=== PATIENT | male | born 1960 | race Caucasian/White ===

== ENCOUNTER → 2019-05-21 15:04 | Outpatient (BNVA) | payer MEDICAID, SELFPAY | PROVIDERS: Family Provider Family Medicine; PCP Family Medicine; Visit Provider Family Medicine | DX: I10 Essential (primary) hypertension (principal); E78.2 Mixed hyperlipidemia; E11.9 Type 2 diabetes mellitus without complications; Z79.4 Long term (current) use of insulin | CPT/HCPCS: 80053; 80061; 82044; 83036; 83721; 85025 ==

== ENCOUNTER 2019-11-08 13:53 | Emergency (ER) | payer MEDICAID, SELFPAY ==
[2019-11-08 14:01] VITALS: BP 161/79; PULSE 92; RESP 14; TEMP 37.1; O2SAT 94; BMI 25.8
[2019-11-08 14:11] VITALS: BP 147/102; PULSE 95; RESP 16; O2SAT 95
--- NOTE | 2019-11-08 14:17 | W.ED.SKABFB ---
HPI - Skin/Abscess/Foreign Bdy General: Chief complaint: Skin/Abscess/Foreign Body Stated complaint: bump on breast Time Seen by Provider: 11/08/19 14:11 Source: patient Mode of arrival: ambulatory Limitations: no limitations History of Present Illness: HPI narrative: Patient is a 59-year-old female who presents to ED today with a complaint of redness and possible abscess to her right breast. Patient tells me she has a history of similar areas in her groins. She tells me she began noticing what looks like a pimple to her right breast a few days ago and states since then the area has continued to enlarge. She has not been running fevers. She does report previous mammograms that were normal but states she is due for one. MD complaint: abscess/boil Onset (ago): day(s) Tetanus up to date: yes Location: chest (R breast) Relieving factors: none Exacerbating factors: none Context: none Associated symptoms: Reports no associated symptoms; Deny chills or fever(s) Review of Systems Const: Denies: fever(s), chills, body aches, change in appetite, change in weight, fatigue or malaise Skin/Breast: Reports: new lesions PFSH ED PFSH: Medical History (Updated 11/08/19 @ 14:31 by MARILYN Kenny) Depression, endogenous Diabetic neuropathy Essential hypertension Mixed hyperlipidemia Type 2 diabetes mellitus, with long-term current use of insulin Surgical History H/O tubal ligation H/O: hysterectomy History of cholecystectomy History of open reduction and internal fixation (ORIF) procedure Family History Other CAD (coronary artery disease) Cancer Diabetes Hyperlipidemia Hypertension Stroke Thyroid condition Social History Smoking and tobacco status: current every day smoker cigarettes Packs smoked per day: 0.5 Alcohol intake: former Current gender identity: Female Physical Exam Const: COMMON NORMALS: no acute distress, average body habitus, patient oriented x3, no limitations, healthy appearing, alert and well nourished Chest: OTHER: pt has a small 0.5 indurated area to superior aspect of R nipple at approx. the 10 o'clock position; there is some surrounding erythema but no fluctuance and nothing amendable to I&D at this time Resp: COMMON NORMALS: normal respiratory effort and clear to auscultation bilaterally AUSCULTATION: clear to auscultation bilaterally Cardio: COMMON NORMALS: regular rate and regular rhythm RATE: regular rate RHYTHM: regular rhythm Neuro: COMMON NORMALS: patient oriented x3 SENSORIUM/ORIENTATION: Yes alert Skin: OTHER: see chest assessment Course Vital Signs: Vital signs: Vital Signs Temperature 98.7 F 11/08/19 14:01 Pulse Rate 95 11/08/19 14:11 Respiratory Rate 16 11/08/19 14:11 Blood Pressure 147/102 11/08/19 14:11 Pulse Oximetry 95 11/08/19 14:11 MDM - Skin/Abscess/Foreign Bdy MDM Narrative: Medical decision making narrative: Clinically this looks like an abscess and given patient's history, I will treat as such with Bactrim. This is less likely any form of inflammatory breast carcinoma however recommended close follow-up with her PCP in case area does not improve with the Bactrim. Return to ED precautions given. Discharge Plan Discharge Patient Disposition: Home, Self-Care Clinical Impression: Abscess of breast, right Condition: Stable Prescriptions: New Bactrim DS 800-160 mg tablet 1 tab PO BID 7 Days Qty: 14 RF: 0 No Action buspirone 5 mg tablet 5 mg PO TID PRN (Reason: anxiety) 30 Days Qty: 90 RF: 0 Chantix 1 mg tablet 1 mg PO BID Qty: 56 RF: 0 fluticasone propionate [Flonase Allergy Relief] 50 mcg/actuation spray,suspension 2 spray INTRANASAL QDAY RF: 0 montelukast [Singulair] 10 mg tablet 10 mg PO QDAY RF: 0 lisinopril 20 mg tablet 20 mg PO QDAY Qty: 30 RF: 0 trazodone 50 mg tablet See Rx Instructions PO .po q hs PRN (Reason: insomnia) 30 Days Qty: 60 RF: 2 citalopram 40 mg tablet 40 mg PO QDAY Qty: 30 RF: 2 rosuvastatin [Crestor] 40 mg tablet 40 mg PO QDAY Qty: 30 RF: 2 hydrochlorothiazide 25 mg tablet 25 mg PO QAM Qty: 30 RF: 2 Januvia 100 mg tablet 100 mg PO QDAY Qty: 30 RF: 2 fenofibrate nanocrystallized [Tricor] 145 mg tablet 145 mg PO QDAY Qty: 30 RF: 2 gabapentin 600 mg tablet 600 mg PO TID Qty: 90 RF: 2 Lantus Solostar U-100 Insulin 100 unit/mL (3 mL) insulin pen 10 unit SUBCUT QDAY Qty: 15 RF: 0 albuterol sulfate [ProAir HFA] 90 mcg/actuation HFA aerosol inhaler 2 puff INHALATION QID PRN (Reason: shortness of breath or wheezing) Qty: 8.5 RF: 2 metformin 1,000 mg tablet extended release 24hr 2,000 mg PO QDAY Qty: 60 RF: 0 Discharge Orders: Discharge Order (Routine); Ordered 11/08/19 Ordered By: Jo Cruz Referrals: Dolores Pineda DO [Primary Care Provider] - Patient Instructions: Abscess (ED), Skin Abscess, Skin Abscess - Antibiotics Activity Restrictions/Additional Instructions: As discussed please follow-up with Dr. Pineda in approximately 5 to 7 days for reevaluation. You may return to the emergency department for worsening pain, worsening redness, drainage, swelling, or any other concerns you may have. Coding Level of Care Code ED Bottle Washer Machine for Amparo Haro
[2019-11-08 14:40] VITALS: BP 146/98; PULSE 89; RESP 16; O2SAT 97
== END 2019-11-08 14:42 | disposition home or self-care (01) ==
LOC: ER 14:33
PROVIDERS: Emergency Provider Physician Assistant; PCP Family Medicine
DX: N61.1 Abscess of the breast and nipple (principal); Z79.4 Long term (current) use of insulin; E11.40 Type 2 diabetes mellitus with diabetic neuropathy, unspecified; I10 Essential (primary) hypertension; E78.2 Mixed hyperlipidemia; F17.210 Nicotine dependence, cigarettes, uncomplicated
CPT/HCPCS: 12345; 99281; 99282

== ENCOUNTER → 2019-11-30 14:49 | Outpatient (BNVA) | payer MEDICAID, SELFPAY | PROVIDERS: PCP Family Medicine; Visit Provider Psychiatry & Neurology Psychiatry | DX: F41.8 Other specified anxiety disorders (principal); F41.1 Generalized anxiety disorder; F51.05 Insomnia due to other mental disorder; G47.00 Insomnia, unspecified; Z63.8 Other specified problems related to primary support group | CPT/HCPCS: 90792 ==

== ENCOUNTER → 2019-12-24 12:40 | Outpatient (BNVA) | payer MEDICAID, SELFPAY | PROVIDERS: PCP Family Medicine; Visit Provider Nurse Practitioner Family | DX: M79.672 Pain in left foot (principal) | CPT/HCPCS: 73630 ==

== ENCOUNTER → 2020-01-17 13:45 | Outpatient (BNVA) | payer MEDICAID, SELFPAY | PROVIDERS: PCP Family Medicine; Visit Provider Psychiatry & Neurology Psychiatry | DX: F41.8 Other specified anxiety disorders (principal); F51.05 Insomnia due to other mental disorder; F99 Mental disorder, not otherwise specified; Z63.8 Other specified problems related to primary support group; F41.1 Generalized anxiety disorder | CPT/HCPCS: 99213 ==

== ENCOUNTER → 2020-01-25 09:36 | Outpatient (BNVA) | payer MEDICAID, SELFPAY | PROVIDERS: PCP Family Medicine; Visit Provider Family Medicine | DX: E11.9 Type 2 diabetes mellitus without complications (principal); Z79.4 Long term (current) use of insulin; E78.2 Mixed hyperlipidemia; I10 Essential (primary) hypertension | CPT/HCPCS: 80053; 80061; 82043; 83036; 85025; 87086 ==

== ENCOUNTER → 2020-03-13 13:45 | Outpatient (BNVA) | payer MEDICAID, SELFPAY | PROVIDERS: PCP Family Medicine; Visit Provider Psychiatry & Neurology Psychiatry | DX: F41.8 Other specified anxiety disorders (principal); F51.05 Insomnia due to other mental disorder; F99 Mental disorder, not otherwise specified; Z63.8 Other specified problems related to primary support group | CPT/HCPCS: 99212 ==

== ENCOUNTER → 2020-05-08 09:32 | Outpatient (BNVA) | payer MEDICAID, SELFPAY | PROVIDERS: PCP Family Medicine; Visit Provider Family Medicine | DX: E11.9 Type 2 diabetes mellitus without complications (principal); Z79.4 Long term (current) use of insulin; E78.2 Mixed hyperlipidemia; K21.9 Gastro-esophageal reflux disease without esophagitis | CPT/HCPCS: 80053; 80061; 81015; 82043; 83036 ==

== ENCOUNTER → 2020-05-29 09:04 | Outpatient (BNVA) | payer MEDICAID, SELFPAY | PROVIDERS: PCP Family Medicine; Visit Provider Psychiatry & Neurology Psychiatry | DX: F41.8 Other specified anxiety disorders (principal); F51.05 Insomnia due to other mental disorder; F99 Mental disorder, not otherwise specified; Z63.8 Other specified problems related to primary support group | CPT/HCPCS: 99214 ==

== ENCOUNTER → 2020-07-25 09:08 | Outpatient (BNVA) | payer MEDICAID, SELFPAY | PROVIDERS: PCP Family Medicine; Visit Provider Psychiatry & Neurology Psychiatry | DX: F41.8 Other specified anxiety disorders (principal); G47.00 Insomnia, unspecified; F51.05 Insomnia due to other mental disorder; F99 Mental disorder, not otherwise specified; Z63.8 Other specified problems related to primary support group | CPT/HCPCS: 99214 ==

== ENCOUNTER → 2020-11-20 10:23 | Outpatient (BNVA) | payer MEDICAID, SELFPAY | PROVIDERS: PCP Family Medicine; Visit Provider Psychiatry & Neurology Psychiatry | DX: F41.8 Other specified anxiety disorders (principal); F51.05 Insomnia due to other mental disorder; F99 Mental disorder, not otherwise specified; Z63.8 Other specified problems related to primary support group | CPT/HCPCS: 99214 ==

== ENCOUNTER → 2020-11-30 09:34 | Outpatient (BNVA) | payer MEDICAID, SELFPAY | PROVIDERS: PCP Family Medicine; Visit Provider Family Medicine | DX: E11.9 Type 2 diabetes mellitus without complications (principal); Z79.4 Long term (current) use of insulin; E78.2 Mixed hyperlipidemia; I10 Essential (primary) hypertension; K21.9 Gastro-esophageal reflux disease without esophagitis; F17.218 Nicotine dependence, cigarettes, with other nicotine-induced disorders | CPT/HCPCS: 80053; 80061; 83036; 85025 ==

== ENCOUNTER → 2021-01-30 10:54 | Outpatient (BNVA) | payer MEDICAID, SELFPAY | PROVIDERS: PCP Family Medicine; Visit Provider Family Medicine Adult Medicine | DX: M54.9 Dorsalgia, unspecified (principal) | CPT/HCPCS: 71046 ==

== ENCOUNTER → 2021-02-20 10:36 | Outpatient (BNVA) | payer MEDICAID, SELFPAY | PROVIDERS: PCP Family Medicine; Visit Provider Psychiatry & Neurology Psychiatry | DX: F41.8 Other specified anxiety disorders (principal); G47.00 Insomnia, unspecified; F51.05 Insomnia due to other mental disorder; F99 Mental disorder, not otherwise specified; Z63.8 Other specified problems related to primary support group | CPT/HCPCS: 99214 ==

== ENCOUNTER → 2021-05-31 08:36 | Outpatient (BNVA) | payer MEDICAID, SELFPAY | PROVIDERS: PCP Family Medicine; Visit Provider Family Medicine | DX: E11.9 Type 2 diabetes mellitus without complications (principal); Z79.4 Long term (current) use of insulin | CPT/HCPCS: 80053; 83036 ==

== ENCOUNTER → 2021-08-22 09:07 | Outpatient (BNVA) | payer MEDICAID, SELFPAY | PROVIDERS: PCP Family Medicine; Visit Provider Family Medicine | DX: E78.2 Mixed hyperlipidemia (principal); E11.9 Type 2 diabetes mellitus without complications; Z79.4 Long term (current) use of insulin; I10 Essential (primary) hypertension; R06.09 Other forms of dyspnea | CPT/HCPCS: 80053; 80061; 83036 ==

== ENCOUNTER → 2021-09-17 10:51 | Outpatient (BNVA) | payer MEDICAID, SELFPAY | PROVIDERS: PCP Family Medicine; Visit Provider Registered Nurse Neonatal Intensive Care | DX: M79.671 Pain in right foot (principal) | CPT/HCPCS: 73630 ==

== ENCOUNTER → 2021-11-20 08:26 | Outpatient (BNVA) | payer MEDICAID, SELFPAY | PROVIDERS: PCP Family Medicine; Visit Provider Family Medicine | DX: I10 Essential (primary) hypertension (principal); E11.9 Type 2 diabetes mellitus without complications; Z79.4 Long term (current) use of insulin; E78.2 Mixed hyperlipidemia; E11.42 Type 2 diabetes mellitus with diabetic polyneuropathy; K21.9 Gastro-esophageal reflux disease without esophagitis; F17.218 Nicotine dependence, cigarettes, with other nicotine-induced disorders | CPT/HCPCS: 80053; 82043; 83036; 85025 ==

== ENCOUNTER → 2022-02-21 08:17 | Outpatient (BNVA) | payer MEDICAID, SELFPAY | PROVIDERS: PCP Family Medicine; Visit Provider Family Medicine | DX: E11.9 Type 2 diabetes mellitus without complications (principal); Z79.4 Long term (current) use of insulin | CPT/HCPCS: 80053; 83036 ==

== ENCOUNTER → 2022-08-22 08:21 | Outpatient (BNVA) | payer MEDICAID, SELFPAY | PROVIDERS: PCP Family Medicine; Visit Provider Family Medicine | DX: E11.9 Type 2 diabetes mellitus without complications (principal); Z79.4 Long term (current) use of insulin; E78.2 Mixed hyperlipidemia; K21.9 Gastro-esophageal reflux disease without esophagitis | CPT/HCPCS: 80053; 80061; 82043; 83036; 85025 ==

== ENCOUNTER 2022-10-14 09:36 | Outpatient (CLI) | payer MEDICAID, SELFPAY ==
[2022-10-14 09:58] VITALS: BMI 28.1
--- NOTE | 2022-10-14 09:59 | NMCV_ITS ---
NM darwin perf SPECT r/s* [id number] Niru Mendoza Age: 62 Gender: F : 1960 Exam Date: 10/14/2022 10:38 Ordering Phys: Dolores Pineda DO Technologist: SANTA Murphy Exam Location: [facility] Indications: SHORTNESS OF BREATH STRESS TEST [facility] IMAGE PROTOCOL Rest/Stress 1 Lexiscan Day Radiopharmaceutical Dose (mCi) Administration Site Administered by Rest: Tc-99m 10.4 IV SANTA [place] Sestamibi Stress:Tc-99m 32.8 IV S[place] Sestamibi Rest: 14-Oct-2022 60 Discovery 630 Stress: 14-Oct-2022 30 Discovery 630 0.4mg Lexiscan. Images obtained in supine and prone position. SPECT RESULTS Technical Quality: Excellent Raw Data Analysis: Normal Image Corrections: No attenuation or motion correction applied Summed Stress Score: 0 Summed Rest Score: 0 Summed Difference Score: 0 PERFUSION FINDINGS SPECT images demonstrate homogeneous tracer distribution throughout the myocardium. FUNCTIONAL RESULTS (calculated via Gated SPECT) Stress Image LV EF (%): 77 Stress EDV (mL):73 TID: 0.71 Stress ESV (mL):17 FUNCTIONAL FINDINGS: There is normal left ventricular systolic function. IMPRESSIONS 1. Normal myocardial perfusion imaging with no evidence of ischemia 2. LV systolic function is normal Anthony Miller MD (Electronically Signed) Final Date: 14 October 2022 17:31 S
--- NOTE | 2022-10-14 09:59 | ECG_ITS ---
[facility] Test Date: 2022-10-14 Pat Name: Niru Mendoza Department: Room: Gender: Female Vessel Captain: Shiela Orona : 1960 Requested By: Dolores Pineda Order Number: [id number] Paola MD: Anthony Miller M.D. Interpretive Statements NAME OF STUDY: LEXISCAN SESTAMIBI STRESS TEST INDICATION: [Shortness of Breath, ] Procedure: At the baseline, the blood pressure was 140/89 mmHg with a heart rate of 69 bpm. The electrocardiogram showed normal sinus rhythm, normal axis with normal ST and T's. The Lexiscan was infused over a period of 20 seconds. A total of 0.4 mg of Lexiscan was infused. The stress phase was continued for a total of 5 minutes. Heart rate was at the end of stress phase was 86 bpm and a blood pressure of 142/77 mmHg. The EKG at the peak infusion revealed normal sinus rhythm with no significant ST-T wave changes. Sestamibi was injected 20 seconds after the Lexiscan infusion. Blood pressure at the end of recovery phase was 132/78 mmHg with a heart rate of 81 bpm. Conclusion: 1. Normal EKG response to Lexiscan infusion 2. No Lexiscan induced chest pain or cardiac arrhythmia. 3. Normal blood pressure and heart rate response. 4. Sestamibi/sestamibi perfusion scan pending; see separate report. Electronically Signed On 10-19-2022 14:46:24 CDT by Anthony Miller M.D. [email or web address]
[2022-10-14] MEDS: regadenoson 0.4 Mg/5 ml Syringe IVP (11:30)
[2022-10-14 11:41] VITALS: BP 132/78; PULSE 82
== END 2022-10-14 09:37 | disposition home or self-care (01) ==
LOC: CDL 09:36
PROVIDERS: PCP Family Medicine; Visit Provider Family Medicine
DX: R06.02 Shortness of breath (principal)
CPT/HCPCS: 36415; 78452; 93017; 96374; A9500; J2785